=== PATIENT | female | born 1980 ===

== ENCOUNTER 2021-12-19 11:44 | Emergency (ER) | payer SELFPAY ==
[2021-12-19 12:16] VITALS: BP 143/76
[2021-12-19] MEDS ORDERED: SODIUM CHLORIDE 0.9% 1000 ML 1,000 ML IV ONE (12:17)
[2021-12-19 12:56] LABS: Hematocrit 34.3 % (30.3-42.9); Mean Corpuscular HGB Conc 32 % (30-34); Mean Corpuscular Volume 88 fl (79-97); Platelet Count 315 K/mm3 (140-440); Red Blood Count 3.91 M/mm3 (3.65-5.03); Red Cell Distribution Width 15.2 % (13.2-15.2)
[2021-12-19 13:20] LABS: Alanine Aminotransferase 16 units/L (7-56); Albumin 3.9 g/dL (3.9-5); Blood Urea Nitrogen 6 mg/dL (7-17); Calcium 8.5 mg/dL (8.4-10.2); Hemolysis Index 8
[2021-12-19 13:34] LABS: BUN/Creatinine Ratio 10
== END 2021-12-19 13:00 | disposition left against medical advice (07) ==
LOC: ED 11:44
DX: R73.9 Hyperglycemia, unspecified (principal); Z53.21 Procedure and treatment not carried out due to patient leaving prior to being seen by health care provider
CPT/HCPCS: 36415; 80053; 82805; 82962; 85027